=== PATIENT | female | born 1995 | race Caucasian/White ===

== ENCOUNTER 2017-09-25 15:28 | Emergency (ER) | payer OTHER ==
[~2017-09-25] VITALS: Ht 170.2 cm; Wt 73.6 kg
[2017-09-25 16:17] VITALS: BP 159/96
[2017-09-25] MEDS ORDERED: ANTIVERT25 MG PO (17:37)
[2017-09-25] MEDS ORDERED: MOTRIN600 MG PO (17:37)
[2017-09-25] MEDS ORDERED: FIORICET 50-301 EAC1 PO (17:37)
[2017-09-25] MEDS ORDERED: VALIUM2 MG PO (17:37)
[2017-09-25] MEDS ORDERED: ZOFRAN ODT4 MG PO (17:37)
== END 2017-09-25 17:53 | disposition home or self-care (01) ==
LOC: EME 15:28
DX: S16.1XXA Strain of muscle, fascia and tendon at neck level, initial encounter (principal); S29.012A Strain of muscle and tendon of back wall of thorax, initial encounter; S06.0X0A Concussion without loss of consciousness, initial encounter; S00.83XA Contusion of other part of head, initial encounter; V49.40XA Driver injured in collision with unspecified motor vehicles in traffic accident, initial encounter; Y92.410 Unspecified street and highway as the place of occurrence of the external cause
CPT/HCPCS: 72040; 72070; 99281; 99284